=== PATIENT | female | born 1985 | race Caucasian/White ===

== ENCOUNTER 2016-07-24 21:36 | Emergency (ER) | payer BC, OTHER ==
[2016-07-24 21:40] VITALS: TEMP 97.9
[2016-07-24] MEDS ORDERED: methylPREDNISolone SOD SUCC 125 MG/2 ML VIAL IVP ONE (22:29)
[2016-07-24] MEDS ORDERED: FAMOTIDINE 20 MG/2 ML SDV IVP ONE (22:30)
--- NOTE | 2016-07-24 22:42 | EDPHY ---
H & P Stated Complaint: allergic reaction HPI/ROS: CHIEF COMPLAINT: possible allergic reaction HISTORY OF PRESENT ILLNESS: patient was eating a meal at approximately 8:45 a.m. when she noted swelling of the left eye and her lips. She says she Was eating peppers or onions that likely what caused her reaction. no chest pain or shortness of breath. She did feel anxious about this but this has improved. She took 50 mg of Benadryl by mouth at 9:15 p.m.. Since then she no significant improvement of the swelling of her eye. She has no difficulty breathing. No swelling of the tongue or mouth at this time. Has multiple food allergies but was not aware of this. She has no other systemic complaints, including no rash. She has no other associated complaints or modifying factors at this time. REVIEW OF SYSTEMS: Ten systems reviewed and are negative unless otherwise noted in the HPI EXAMINATION General Appearance: Alert, no distress Head: normocephalic, atraumatic Eyes: Pupils equal and round, no conjunctival pallor or injection, Mild edema of the left eyelid ENT, Mouth: Mucous membranes moist, no swelling of the lips or tongue. No abnormality of the floor of the mouth. Airway is patent Neck: Normal inspection, supple, non-tender Respiratory: Lungs are clear to auscultation Cardiovascular: Regular rate and rhythm Gastrointestinal: Abdomen is soft and nontender Back: non-tender, no bony abnormalities Neurological: A&O, nonfocal, normal gait Skin: Warm and dry, no rash Extremities: Nontender, no pedal edema Psychiatric: Mood and affect normal Differential Diagnoses: 1. acute allergic reaction 2. Foot allergy 3. eyelid edema MDM: Acute allergic reaction to food intake this evening. She remains awake and alert, airway is patent and protected easily. She is in no acute distress. She is feeling much better on the Benadryl she took at home. We will administer IV Solu-Medrol and Pepcid to monitor her. 23:15 Patient remains hemodynamically stable and feeling much better. She did receive IV Solu-Medrol and Pepcid. She has no swelling of the face. No swelling of the lips or tongue. She notes no shortness of breath. Discharge home with continued oral steroid therapy, oral Benadryl, and oral Pepcid for 3- 5 days. We did discuss ED precautions for return of symptoms. She and her significant other at bedside are comfortable with this plan assessment - Personal History LMP (Females 10-55): IUD In Place Current Tetanus Diphtheria and Acellular Pertussis (TDAP): Yes - Medical/Surgical History Hx Asthma: No Hx Chronic Respiratory Disease: No Hx Diabetes: No Hx Cardiac Disease: No Hx Renal Disease: No Hx Cirrhosis: No Hx Alcoholism: No Hx HIV/AIDS: No Hx Splenectomy or Spleen Trauma: No Other PMH: PT DENIES - Social History Smoking Status: Never smoked Constitutional: Initial Vital Signs Temperature (C) 97.9 F 07/24/16 21:38 Heart Rate 85 07/24/16 21:38 Respiratory Rate 20 07/24/16 21:38 Blood Pressure 150/92 H 07/24/16 21:38 O2 Sat (%) 98 07/24/16 21:38 Allergies/Adverse Reactions: ALMONDS Allergy (Uncoded 01/11/13 21:47) BROCCOLI Allergy (Uncoded 01/11/13 21:47) CAYENNE PEPPER Allergy (Uncoded 01/11/13 21:47) CUMIN Allergy (Uncoded 01/11/13 21:47) GREEN PEPPER Allergy (Uncoded 01/11/13 21:47) HAZELNUTS Allergy (Uncoded 01/11/13 21:47) HOPS Allergy (Uncoded 01/11/13 21:47) ONION Allergy (Uncoded 01/11/13 21:47) PINE NUTS Allergy (Uncoded 01/11/13 21:47) SESAME OIL Allergy (Uncoded 01/11/13 21:47) SESAME SEEDS Allergy (Uncoded 01/11/13 21:47) SUNFLOWER OIL Allergy (Uncoded 01/11/13 21:47) SUNFLOWER SEEDS Allergy (Uncoded 01/11/13 21:47) WALNUTS Allergy (Uncoded 01/11/13 21:47) WHITE POTATO Allergy (Uncoded 01/11/13 21:47) Home Medications: Medication Instructions Recorded predniSONE 60 mg PO DAILY #15 tab 07/24/16 Medical Decision Making - Data Points Medications Given: Discontinued Medications Famotidine (Pepcid) 20 mg IVP EDNOW ONE Stop: 07/24/16 22:31 Last Admin: 07/24/16 22:40 Dose: 20 mg Methylprednisolone Sodium Succinate (Solu-Medrol) 125 mg IVP EDNOW ONE Stop: 07/24/16 22:30 Last Admin: 07/24/16 22:40 Dose: 125 mg Departure - Departure Disposition: Home, Routine, Self-Care Clinical Impression: Food allergy Acute allergic reaction Qualifiers: Qualifier Code: (T78.40XA) Allergy, unspecified, initial encounter Condition: Good Instructions: Food Allergy (ED), Anaphylaxis (ED) Additional Instructions: ED precautions as discussed for shortness of breath, swelling of the lips, mouth or tongue Prescriptions: predniSONE 60 mg PO DAILY #15 tab
[2016-07-25 00:14] VITALS: BP 108/90; PULSE 86; RESP 16; O2SAT 97
== END 2016-07-25 00:11 | disposition home or self-care (01) ==
DX: K13.0 Diseases of lips (principal); T78.1XXA Other adverse food reactions, not elsewhere classified, initial encounter
CPT/HCPCS: 96374

== ENCOUNTER → 2017-05-08 | Outpatient (CLI) | payer BC | LOC: BMCIMAGING 11:26 | PROVIDERS: ATTEND Allergy & Immunology Allergy | DX: Z13.820 Encounter for screening for osteoporosis (principal) ==

== ENCOUNTER → 2017-06-25 | Outpatient (CLI) | payer BC | LOC: BMCIMAGING 14:46 | PROVIDERS: ATTEND Allergy & Immunology Allergy | DX: D84.9 Immunodeficiency, unspecified (principal) ==

== ENCOUNTER → 2017-07-05 | Outpatient (CLI) | payer BC | LOC: FIMAGING 09:03 | PROVIDERS: ATTEND Allergy & Immunology Allergy | DX: D89.40 Mast cell activation, unspecified (principal); K76.0 Fatty (change of) liver, not elsewhere classified ==